=== PATIENT | female | born 1995 | race Caucasian/White ===

== ENCOUNTER → 2023-09-04 18:17 | Outpatient (CLI) | payer SELFPAY ==
[2023-09-04 19:42] LABS: Influenza A - CEPHEID Flu A NEGATIVE (NEGATIVE); Influenza B - CEPHEID Flu B NEGATIVE (NEGATIVE); Respiratory Syncytial Virus Negative (Negative)
[2023-09-04 19:46] LABS: COVID-19 CEPHEID 4-PLEX PCR Negative (Negative)
== END ==
PROVIDERS: Visit Provider Physician Assistant
DX: R05.9 Cough, unspecified (principal)
CPT/HCPCS: 0241U

== ENCOUNTER → 2024-10-28 08:25 | Outpatient (CLI) | payer OTHER, MEDICAID, SELFPAY ==
--- NOTE | 2024-10-28 08:25 | DI.US.S_ITS ---
PROCEDURE: US PELVIC COMPLETE INDICATIONS: AMENORRHEA TECHNIQUE: Real-time scanning was performed of the pelvic organs, with image documentation. Additional endovaginal scanning was necessary due to incomplete visualization of the adnexal and endometrial structures by transabdominal scanning. COMPARISON: None. FINDINGS: Uterus: Uterus is anteverted and normal in size at 6.4 x 3.3 x 4.3 cm. The myometrium is homogeneous. The endometrium measures 2.1 mm combined thickness. Ovaries: The right ovary measures 2.0 x 3.3 x 1.9 cm, with a calculated ovarian volume of 6.4 cc. The left ovary measures 1.9 x 4.0 x 2.2 cm, with a calculated ovarian volume of 8.6 cc. The ovaries have a normal sonographic appearance. Less than 12 follicles can be seen in each ovary. No adnexal masses are seen. Other: No pathologic free abdominal or pelvic fluid. IMPRESSION: Normal appearance of the uterus and ovaries. No cause for patient's symptoms. We strive to produce accurate, complete, and clear reports of imaging services. To assist us in improving patient care, this report was composed using standard report templates and voice recognition software. Therefore, it may contain abnormal punctuation, insertions and/or omissions. Occasional wrong-word or sound-alike substitutions may occur. Though we review the report and make efforts to correct it, we do recommend that the report be read carefully in proper context to recognize any text inaccuracies. Dictated by: Aron Kumar M.D. on 10/28/2024 at 10:20 Approved by: Aron Kumar M.D. on 10/28/2024 at 10:21
== END ==
PROVIDERS: Referring Provider Obstetrics & Gynecology; Visit Provider Obstetrics & Gynecology
DX: N91.2 Amenorrhea, unspecified (principal)
CPT/HCPCS: 76830; 76856

== ENCOUNTER → 2024-11-10 15:03 | Outpatient (CLI) | payer OTHER, MEDICAID, SELFPAY ==
[2024-11-10 15:38] LABS: Hemoglobin A1C% w Est Avg Glu 4.8 % (4.0-6.0)
[2024-11-10 16:23] LABS: Prolactin 9.5 ng/mL (3.0-18.6)
[2024-11-10 16:35] LABS: TSH w/ Reflex to FT4 5.27 uIU/mL (0.47-4.68)
[2024-11-10 16:39] LABS: Testosterone 22.1 ng/dL (5.71-77.0)
== END ==
PROVIDERS: Referring Provider Student in an Organized Health Care Education/Training Program; Visit Provider Student in an Organized Health Care Education/Training Program
DX: E28.2 Polycystic ovarian syndrome (principal); E66.9 Obesity, unspecified
CPT/HCPCS: 36415; 83036; 84146; 84403; 84439; 84443

== ENCOUNTER → 2025-08-25 11:58 | Outpatient (CLI) | payer OTHER, SELFPAY | PROVIDERS: Referring Provider Student in an Organized Health Care Education/Training Program; Visit Provider Student in an Organized Health Care Education/Training Program | DX: Z86.19 Personal history of other infectious and parasitic diseases (principal) | CPT/HCPCS: 36415; 86592 ==

== ENCOUNTER → 2025-09-09 10:10 | Outpatient (CLI) | payer OTHER, SELFPAY ==
[2025-09-12 12:40] LABS: RPR QNT 1:2 titer (NonRea<1:1); RPR Quant + RPR Abs Non Reactive (Non Reactive)
== END ==
PROVIDERS: Referring Provider Student in an Organized Health Care Education/Training Program; Visit Provider Student in an Organized Health Care Education/Training Program
DX: E28.2 Polycystic ovarian syndrome (principal)
CPT/HCPCS: 36415; 86592